=== PATIENT | male | born 1965 | race Caucasian/White ===

== ENCOUNTER 2017-10-24 00:44 | Emergency (ER) | payer OTHER ==
[~2017-10-24] VITALS: Ht 167.6 cm; Wt 113.4 kg
[~2017-10-24 00:44] MED LIST: FIORINAL 50-321 EACH PO; IMITREX50 M1 PO
--- NOTE | 2017-10-24 01:48 | ED GI/GU/ABDOMINAL COMPLAINT ---
History of Present Illness General Chief Complaint: Abdominal Pain/Flank Pain Stated Complaint: "UM I HAVE PAIN IN MY RIGHT KIDNEY" Source: patient, old records Exam Limitations: no limitations Vital Signs & Intake/Output Vital Signs & Intake/Output Vital Signs Date Time Temp Pulse Resp B/P B/P Pulse O2 O2 Flow FiO2 Mean Ox Delivery Rate 10/24 0110 188/108 10/24 0106 98.7 71 18 221/111 98 Room Air Allergies Coded Allergies: No Known Allergies (01/23/17) Reconcile Medications Fiorinal (Fiorinal 50-325-40 MG Capsule) 50 MG-325 MG-40 MG CAPSULE 1 TAB PO TID PRN MIGRAINE TEN...[id number] Sumatriptan Succinate (Imitrex) 50 MG TABLET 1 TAB PO TID PRN MIGRAINE Triage Note: TRIAGE: PATIENT TO ER FROM HOME REPORTING "KIDNEY STONE, HX OF SAME." R FLANK PAIN SINCE 10:30PM TONIGHT, INTERMITTENT SEVERITY, APPROX 9-10/10 AT WORST. +NAUSEA, DENIES VOMITTING/ DIARRHEA. DENIES URINARY DIFFICULTIES. Triage Nurses Notes Reviewed? yes HPI: Patient presents with right flank pain radiating to the right groin since 10:00 this evening. The pain is colicky in nature. The pain is constant. There are no aggravating or mitigating factors. He rates the pain at 8 out of 10. Similar symptoms in the past when he has had kidney stones. Positive nausea but no vomiting. No fevers or chills. No dysuria. Past History Travel History Traveled to [place] past 21 day No Medical History Any Pertinent Medical History? 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 No Review of Systems Review of Systems Constitutional: Reports: no symptoms. EENTM: Reports: no symptoms. Respiratory: Reports: no symptoms. Cardiovascular: Reports: no symptoms. GI: Reports: see HPI, abdominal pain, nausea. Genitourinary: Reports: no symptoms. Musculoskeletal: Reports: see HPI, back pain. Skin: Reports: no symptoms. Neurological/Psychological: Reports: no symptoms. Hematologic/Endocrine: Reports: no symptoms. Immunologic/Allergic: Reports: no symptoms. All Other Systems: Reviewed and Negative Physical Exam Physical Exam General Appearance: well developed/nourished, alert, awake, anxious, mild distress Head: atraumatic, normal appearance Eyes: Bilateral: PERRL, EOMI. Ears, Nose, Throat, Mouth: hearing grossly normal, moist mucous membrane Neck: normal inspection, supple, full range of motion Respiratory: normal breath sounds, chest non-tender, no respiratory distress, lungs clear Cardiovascular: regular rate/rhythm, normal peripheral pulses Gastrointestinal: normal bowel sounds, soft, non-tender, no organomegaly Back: CVA tenderness (R) Extremities: normal range of motion Neurologic/Psych: no motor/sensory deficits, awake, alert, oriented x 3, normal mood/affect Skin: intact, normal color, warm/dry Core Measures ACS in differential dx? No Sepsis Present: No Sepsis Focused Exam Completed? No Progress Differential Diagnosis: ureterolithiasis, UTI/pyelo Plan of Care: Orders Procedure Date/time Status URINALYSIS 10/24 49 Complete Laboratory Tests 10/24/17 0053: Urinalysis LIGHT H, Urine Color YEL, Urine Clarity CLEAR, Urine pH 6.0, Ur Specific Perry 1.025, Urine Protein TRACE H, Urine Ketones NEG, Urine Nitrite NEG, Urine Bilirubin NEG, Urine Urobilinogen 1.0, Ur Leukocyte Esterase NEG, Ur Microscopic SEDIMENT EXAMINED, Urine RBC 10-15 H, Urine WBC 1-3 H, Hyaline Casts 1-3 H, Urine Hemoglobin LARGE H, Urine Glucose NEG Diagnostic Imaging: Viewed by Me: CT Scan. Discussed w/RAD: CT Scan. Radiology Impression: PATIENT: ANCELMO HAUSER PRESENT AGE: 52 PATIENT ACCOUNT NO: [id number] : 66 LOCATION: [facility] ORDERING PHYSICIAN: Yong Morgan MD SERVICE DATE: 10/24/17 EXAM TYPE: CAT - CT ABD & PELVIS W/O IV CONTRAS EXAMINATION: CT ABDOMEN AND PELVIS WITHOUT CONTRAST CLINICAL INFORMATION: Right lower quadrant and right flank pain. COMPARISON: None TECHNIQUE: Multidetector volumetric imaging was performed from the superior aspect of the liver through the pubic symphysis. Sagittal and coronal reformatted images were obtained on the technologist's workstation. DLP: 964 mGy-cm FINDINGS: LUNG BASES: There is a 0.5 cm groundglass nodule at the left base on series 2 image 12. The lung bases are otherwise clear. The visualized cardiac structures are unremarkable. LIVER, GALLBLADDER, AND BILIARY TREE: The liver is normal in size, shape, and attenuation. No focal hepatic lesion or biliary ductal dilatation is present. The gallbladder is unremarkable with no evidence of radiopaque gallstones, gallbladder wall thickening, or obvious pericholecystic inflammatory changes. PANCREAS: Unremarkable. SPLEEN: Unremarkable. ADRENAL GLANDS: Unremarkable. KIDNEYS AND URETERS: The kidneys are normal in size, shape, and attenuation. There is right perinephric stranding. Mild right hydroureteronephrosis. There is a proximal ureteral 0.4 cm obstructing calculus. This is seen at the level of L3-L4. The remainder of the ureter is decompressed. No additional renal calculi. BLADDER: Unremarkable. GASTROINTESTINAL TRACT: Tiny hiatal hernia. The stomach is otherwise unremarkable. The small bowel is normal in caliber. No obstruction. Normal appendix. No colonic wall thickening or inflammatory change. Minimal colonic diverticulosis without diverticulitis. No free air or free fluid. ABDOMINAL WALL : No significant hernia is appreciated. LYMPH NODES: Normal. VASCULAR: Normal caliber aorta with mild atherosclerotic calcification. PELVIC VISCERA: The prostate and seminal vesicles are unremarkable. OSSEOUS STRUCTURES: No acute or suspicious osseous abnormality. Mild degenerative changes of the spine. Mild degenerative change of the hips. IMPRESSION: 1. Mild right hydroureteronephrosis with a 0.4 cm proximal ureteral obstructing calculus. 2. 0.5 cm groundglass nodule at the left lung base. According to the UPDATED 2017 Fleischner Society recommendations, the advised follow-up imaging for a single subsolid nodule <6 mm is: No routine follow-up is needed. DICTATED BY: Ricky Chavira MD DATE/ TIME DICTATED:10/24/17231 MERCHANDISE COLLECTOR:PEGGY DATE/TIME TRANSCRIBED: 10/24/17231 CONFIDENTIAL, DO NOT COPY WITHOUT APPROPRIATE AUTHORIZATION. < Electronically signed in Other Vendor System> SIGNED BY: Ricky Chavira MD 10/24/17238 Initial ED EKG: none Departure Departure Disposition: HOME OR SELF CARE Condition: Stable Clinical Impression Primary Impression: Kidney stone Referrals: Alma Delia Quintanilla MD Patient Has No Primary Care Dr (PCP/Family) Additional Instructions: Drink plenty of fluids. Take Percocet as needed for the pain. The Percocet is very constipating some extremity. Her earlier on the Percocet. The Percocet is also very sedating so do not drive after taking it. Take Zofran as needed for the nausea. Take Flomax daily for 2 weeks as this will help the stone pass. Follow-up with Dr. Quintanilla. Return if symptoms worsen or for any concerns. Departure Forms: Customer Survey General Discharge Information Prescriptions: Current Visit Scripts Oxycodone HCl/Acetaminophen (Percocet 5-325 MG Tablet) 1-2 TAB PO Q6P PRN PAIN #20 TAB Ondansetron (Zofran Odt) 1 TAB SL TID PRN NAUSEA #10 TAB Tamsulosin HCl (Flomax) 1 CAP PO DAILY #14 CAP
--- NOTE | 2017-10-24 02:39 | CT SCAN REPORT ---
EXAMINATION: CT ABDOMEN AND PELVIS WITHOUT CONTRAST CLINICAL INFORMATION: Right lower quadrant and right flank pain. COMPARISON: None TECHNIQUE: Multidetector volumetric imaging was performed from the superior aspect of the liver through the pubic symphysis. Sagittal and coronal reformatted images were obtained on the technologist's workstation. DLP: 964 mGy-cm FINDINGS: LUNG BASES: There is a 0.5 cm groundglass nodule at the left base on series 2 image 12. The lung bases are otherwise clear. The visualized cardiac structures are unremarkable. LIVER, GALLBLADDER, AND BILIARY TREE: The liver is normal in size, shape, and attenuation. No focal hepatic lesion or biliary ductal dilatation is present. The gallbladder is unremarkable with no evidence of radiopaque gallstones, gallbladder wall thickening, or obvious pericholecystic inflammatory changes. PANCREAS: Unremarkable. SPLEEN: Unremarkable. ADRENAL GLANDS: Unremarkable. KIDNEYS AND URETERS: The kidneys are normal in size, shape, and attenuation. There is right perinephric stranding. Mild right hydroureteronephrosis. There is a proximal ureteral 0.4 cm obstructing calculus. This is seen at the level of L3-L4. The remainder of the ureter is decompressed. No additional renal calculi. BLADDER: Unremarkable. GASTROINTESTINAL TRACT: Tiny hiatal hernia. The stomach is otherwise unremarkable. The small bowel is normal in caliber. No obstruction. Normal appendix. No colonic wall thickening or inflammatory change. Minimal colonic diverticulosis without diverticulitis. No free air or free fluid. ABDOMINAL WALL: No significant hernia is appreciated. LYMPH NODES: Normal. VASCULAR: Normal caliber aorta with mild atherosclerotic calcification. PELVIC VISCERA: The prostate and seminal vesicles are unremarkable. OSSEOUS STRUCTURES: No acute or suspicious osseous abnormality. Mild degenerative changes of the spine. Mild degenerative change of the hips. IMPRESSION: 1. Mild right hydroureteronephrosis with a 0.4 cm proximal ureteral obstructing calculus. 2. 0.5 cm groundglass nodule at the left lung base. According to the UPDATED 2017 Fleischner Society recommendations, the advised follow-up imaging for a single subsolid nodule <6 mm is: No routine follow-up is needed.
[2017-10-24] MEDS ORDERED: FLOMAX0.4 M1 PO (02:45)
[2017-10-24] MEDS ORDERED: PERCOCET 5-3251 EACH PO (02:45)
[2017-10-24] MEDS ORDERED: ZOFRAN ODT4 M1 SL (02:45)
[2017-10-24 02:52] VITALS: BP 174/89
== END 2017-10-24 02:52 ==
LOC: ERH 00:44
DX: N20.0 Calculus of kidney (principal)
CPT/HCPCS: 74176; 81001; 96361; 96374; 96375; J1885; J2405

== ENCOUNTER → 2017-12-17 | Day surgery (SDC) | payer OTHER ==
[~2017-12-17] VITALS: Ht 167.6 cm; Wt 113.4 kg
[~2017-12-17] MED LIST changes: +AMLODIPINE BESY10 M1 PO; +FLOMAX0.4 M1 PO; +PAXIL10 M1 PO; +PERCOCET 5-3251 EACH PO; +QUINAPRIL HCL10 M1 PO; +ZOFRAN ODT4 M1 SL
--- NOTE | 2017-12-17 09:14 | ED GI/GU/ABDOMINAL COMPLAINT ---
History of Present Illness General Chief Complaint: General Adult Stated Complaint: TO MEET DR NICHOLS Source: patient, family, old records, PCP Exam Limitations: no limitations Vital Signs & Intake/Output Vital Signs & Intake/Output Vital Signs Date Time Temp Pulse Resp B/P B/P Pulse O2 O2 Flow FiO2 Mean Ox Delivery Rate 12/17 902 98.6 72 16 195/93 98 Room Air Allergies Coded Allergies: No Known Allergies (01/23/17) Reconcile Medications Amlodipine Besylate 10 MG TABLET 1 TAB PO DAILY HTN (Reported) Oxycodone HCl/Acetaminophen (Percocet 5-325 MG Tablet) 5 MG-325 MG TABLET 1 TAB PO BID pain Paroxetine HCl (Paxil) 10 MG TABLET 1 TAB PO DAILY ANXIETY (Reported) Quinapril HCl 10 MG TABLET 1 TAB PO DAILY HTN (Reported) Triage Note: PT SENT IN BY DR RUIZ TO GO TO OR DUE TO R SIDE KIDNEY STONE Triage Nurses Notes Reviewed? yes HPI: Patient seen in the emergency department last night and diagnosed with a kidney stone. Patient continues to have pain. Patient discussed it with Dr. Ruiz, wants to put a stent in. The patient is going through the emergency department on the way to the operating room. Patient is nauseous however he has not vomited. He describes the pain as a throbbing pain which is 6 out of 10. The pain radiates towards his groin. The pain is constant. There are no aggravating or mitigating factors. Past History Travel History Traveled to [place] past 21 day No Medical History Any Pertinent Medical History? 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 No Review of Systems Review of Systems Constitutional: Reports: no symptoms. EENTM: Reports: no symptoms. Respiratory: Reports: no symptoms. Cardiovascular: Reports: no symptoms. GI: Reports: see HPI, abdominal pain, nausea. Genitourinary: Reports: no symptoms. Musculoskeletal: Reports: see HPI, back pain. Skin: Reports: no symptoms. Neurological/Psychological: Reports: no symptoms. Hematologic/Endocrine: Reports: no symptoms. Immunologic/Allergic: Reports: no symptoms. All Other Systems: Reviewed and Negative Physical Exam Physical Exam General Appearance: well developed/nourished, alert, awake, anxious, mild distress Head: atraumatic, normal appearance Eyes: Bilateral: PERRL, EOMI. Ears, Nose, Throat, Mouth: hearing grossly normal, moist mucous membrane Neck: normal inspection, supple, full range of motion Respiratory: normal breath sounds, chest non-tender, no respiratory distress, lungs clear Cardiovascular: regular rate/rhythm, normal peripheral pulses Gastrointestinal: normal bowel sounds, soft, non-tender Back: normal inspection, normal range of motion Extremities: normal range of motion Neurologic/Psych: no motor/sensory deficits, awake, alert, oriented x 3, normal gait, normal mood/affect Core Measures ACS in differential dx? No Sepsis Present: No Sepsis Focused Exam Completed? No Progress Differential Diagnosis: ureterolithiasis Plan of Care: To the operating room Initial ED EKG: none Departure Departure Disposition: STILL A PATIENT Condition: Stable Clinical Impression Primary Impression: Kidney stone Referrals: Patient Has No Primary Care Dr (PCP/Family) Departure Forms: Customer Survey General Discharge Information OR/GI Note Spoke With: Erick Ruiz MD ED Treatment Decision: VESTACHARITOANCELMO requires urgent operative management or an emergent procedure that cannot be performed in the Emergency Room setting. Transport To: Surgical [facility]
--- NOTE | 2017-12-17 09:34 | Cons- Urology ---
General Information and HPI Consulting Request Date of Consult: 12/17/17 Requested By: MD Eddie, [place]- Reason for Consult: bilateral hydronephrosis: ARF; Bilateral ureteral stones Source of Information: patient, family, old records Exam Limitations: no limitations History of Present Illness: 52 yr old seen 3 times in ER recently with bilat. renal colic and known bilat. ureter stones: now with persistent colic on right with ARF. CT reviewed with pt. and need for bilat. stents discussed for NOW. Allergies/Medications Allergies: Coded Allergies: No Known Allergies (01/23/17) Home Med List: Amlodipine Besylate 10 MG TABLET 1 TAB PO DAILY HTN (Reported) Oxycodone HCl/Acetaminophen (Percocet 5-325 MG Tablet) 5 MG-325 MG TABLET 1 TAB PO BID pain Paroxetine HCl (Paxil) 10 MG TABLET 1 TAB PO DAILY ANXIETY (Reported) Quinapril HCl 10 MG TABLET 1 TAB PO DAILY HTN (Reported) Past History Medical History Neurological: migraine EENT: NONE Cardiovascular: hypertension Respiratory: NONE Gastrointestinal: NONE Hepatic: NONE Renal: nephrolithiasis, KIDNEY STONES Musculoskeletal: NONE Psychiatric: NONE Endocrine: NONE Blood Disorders: NONE Cancer(s): NONE 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 Home Who Do You Live With? spouse, child Services at Home: None Primary Language: Botswanan ETOH Use: denies use Illicit Drug Use: denies illicit drug use Functional Ability ADLs Independent: dressing, eating, toileting, bathing. Ambulation: independent IADLs Independent: shopping, housework, finances, food prep, telephone, transportation , medication admin. Employment History Employment: Employed Retired? no Review of Systems Review of Systems Constitutional: Reports: see HPI, malaise. EENTM: Denies: no symptoms. Cardiovascular: Denies: no symptoms. Respiratory: Denies: no symptoms. GI: Reports: abdominal pain, bloating. Genitourinary: Reports: dysuria. Skin: Denies: no symptoms. Neurological/Psychological: Denies: no symptoms. Exam & Diagnostic Data Vital Signs and I&O Vital Signs Date Time Temp Pulse Resp B/P B/P Pulse O2 O2 Flow FiO2 Mean Ox Delivery Rate 12/17 0903 98.6 72 16 195/93 98 Room Air Intake & Output 12/17 1600 12/17 0812/17 0000 12/16 1600 12/16 0800 12/16 0000 Intake Total Output Total Balance Patient 250 lb Weight Physical Exam General Appearance: well developed/nourished, mild distress Head: atraumatic Eyes: Bilateral: normal appearance. Neck: normal inspection Respiratory: normal breath sounds Cardiovascular: regular rate/rhythm Gastrointestinal: normal bowel sounds, soft Back: CVA tenderness (R), CVA tenderness (L) Extremities: normal inspection Neurologic/Psych: no motor/sensory deficits, awake, alert, oriented x 3 Skin: intact, normal color, warm/dry Reproductive: Normal male genitalia Imaging Results: PATIENT: ANCELMO HAUSER PRESENT AGE: 52 PATIENT ACCOUNT NO: [id number] : 67 LOCATION: [facility] ORDERING PHYSICIAN: Vincent Guardado MD SERVICE DATE: 12/16/17 EXAM TYPE: CAT - CT ABD & PELVIS W/O IV CONTRAS EXAMINATION: CT ABDOMEN AND PELVIS WITHOUT CONTRAST CLINICAL INFORMATION: Right flank pain. History of kinetic stones. COMPARISON: CT 10/24/2017 TECHNIQUE: Multidetector volumetric imaging was performed from the superior aspect of the liver through the pubic symphysis. Sagittal and coronal reformatted images were obtained on the technologist's workstation. DLP: 1252 mGy-cm FINDINGS: LUNG BASES: The visualized lung bases are unremarkable. LIVER, GALLBLADDER, AND BILIARY TREE: The liver is normal in size, shape, and attenuation. No focal hepatic lesion or biliary ductal dilatation is present. The gallbladder is unremarkable with no evidence of radiopaque gallstones, gallbladder wall thickening, or obvious pericholecystic inflammatory changes. PANCREAS: Unremarkable. SPLEEN: Unremarkable. ADRENAL GLANDS: Unremarkable. KIDNEYS AND URETERS: Left kidney is unremarkable. While there is no left renal hydronephrosis there is a persistent stone within the distal left ureter approximately 2 to 3 cm proximal to the UVJ. The stone measures 0.7 cm (image 73, series 2). There is persistent right sided moderate hydroureteronephrosis secondary to a stone within the proximal ureter. There is no significant interval change in the progression of the stone compared to the CT of 10/24/2017. The stone measures 0.4 cm. The Hounsfield units are 366. The distance to the mid axillary line is approximately 18.3 cm. Compared the prior study there is significant progression in the amount of perinephric stranding and edema within gross fascia. Edema tracks along the distal course of the ureter. BLADDER: Unremarkable. GASTROINTESTINAL TRACT: Scattered diverticula without CT evidence for acute diverticulitis. Small hiatal hernia. No bowel obstruction. ABDOMINAL WALL: No significant hernia is appreciated. LYMPH NODES: Scattered mesenteric and retroperitoneal lymph nodes. VASCULAR: Unremarkable. PELVIC VISCERA: Prostate and seminal vesicles appear unremarkable. OSSEOUS STRUCTURES: Stable pars defects at L5-S1 level with no significant associated spondylolisthesis. IMPRESSION: Persistent moderately severe right-sided hydroureteronephrosis secondary to a stone within the proximal right ureter. This appears to be the same stone compared to the CT of 10/24/2017 with no evidence of distal progression. There is increased inflammation within the right retroperitoneum in addition to increased right perinephric stranding. Distal left ureteral stone, stable compared to prior without associated hydroureteronephrosis. DICTATED BY: Delisa Nolasco MD DATE/TIME DICTATED:12/16/172245 SINGING TEACHER:PEGGY DATE/TIME TRANSCRIBED:12/16/172245 CONFIDENTIAL, DO NOT COPY WITHOUT APPROPRIATE AUTHORIZATION. <Electronically signed in Other Vendor System> SIGNED BY: Delisa Nolasco MD 12/16/17 1688 Assessment/Plan Assessment/Plan bialateral ureter stones with hydro. and ARF./BIlateral stents Copies To: Erick Ruiz MD Consult Acknowledgment - Thank you for your consult request. Attending MD Review Statement Attending Statement Attending Statement: examined this patient Attending Assessment/Plan: bilat. stones: need bilat. stents.
[2017-12-17 09:59] VITALS: BP 184/64
--- NOTE | 2017-12-17 14:12 | Operative Report ---
Operative/Inv Procedure Report Surgery Date: 12/17/17 Name of Procedure: cystoscopy:bilateral stent insertion: fluoroscopy Pre-Operative Diagnosis: bilateral obstructing ureter stones with ARF, and bilat. colic Post-Operative Diagnosis: same Estimated Blood Loss: scant Surgeon/Cut Off Saw Set Up Operator: MD Joseph, [place] Anesthesia: laryngeal mask airway Implants: bilat: cook 6 x 22 stents Specimens: none Complications: none Condition: pain free-improved Operative/Procedure Note Note: The patient was taken to the operating room, and transferred to the OR table in supine position. Timeout was performed, with the patient awake, in order to confirm identity, procedure, antibiotics, anesthesia, and other pertinent information. After adequate anesthesia and antibiotics, the patient was placed in lithotomy stirrups draped and prepped in the usual surgical fashion. A 22 Jamaican cystoscope sheath with 30 angle lens was inserted into the urethra without difficulty. Upon entering the prostatic urethra, the prostate was noted to have mild BPH. Upon entering the bladder, the bladder was noted to be free of tumor, free of stone, with bilateral clear efflux from bilateral ureteral orifices. Under direct visualization the left orifice was intubated with a 5 Jamaican whistle-tip catheter. Retrograde pyelogram revealed a large distal ureter stone with proximal hydronephrosis. Contrast material drained slowly from the left side. The ureteral catheter was then removed, and inserted into the right ureteral orifice. Retrograde pyelogram of the right ureter reveals a large stone in the mid ureter, with proximal hydronephrosis. The catheter was then removed, and contrast material was slow to drain from the right side. The right orifice was then inserted with a 0.035 guidewire, and advanced into the right renal pelvis without difficulty, bypassing the stone. A 6 x 20 Cook ureteral stent was rail-roaded over the guidewire. Following the guidewire, the stent advanced into the right renal pelvis without difficulty. With the proximal coil visualized fluoroscopically in the right renal pelvis, and the distal coil seen in the bladder cystoscopically, the guidewire was removed. The stent remained in proper place, draining clear yellow fluid. The or leftifice was then inserted with a 0.035 guidewire, and advanced into the left renal pelvis without difficulty, bypassing the left ureter stone. A second 6 x 20 Cook ureteral stent was rail-roaded over the guidewire. Following the guidewire, the stent advanced into the right renal pelvis without difficulty. With the proximal coil visualized fluoroscopically in the left renal pelvis, and the distal coil seen in the bladder cystoscopically, the guidewire was removed. The stent remained in proper place, draining clear yellow fluid. The bladder was drained, and the cystoscope was removed without difficulty. All sponge needle and instrument count were correct at the end of the case. The patient tolerated the procedure well, and was taken to the recovery room in satisfactory condition. Discharge Disposition: PACU CC: Erick Ruiz MD
--- NOTE | 2017-12-17 14:51 | RADIOLOGY REPORT ---
EXAMINATION: INTRAOPERATIVE FLUOROSCOPIC GUIDANCE AND BILATERAL URETEROSCOPY CLINICAL INFORMATION: Bilateral ureteroscopy. COMPARISON: Selected images CT abdomen and pelvis 12/16/2017. TECHNIQUE: Fluoroscopic time was utilized in the OR for Dr. Ruiz. Fluoroscopic images were obtained in AP projections of the abdomen. FINDINGS: Initial images show a catheter and guidewire extending to the region of the right kidney followed by placement of a double-J ureteral stent which is partially visualized. Subsequent images show placement of a guidewire into the region of the left kidney followed by placement of a left double-J ureteral stent which is partially visualized. Please correlate with the procedural documentation. FLUOROSCOPY TIME: 6 seconds of fluoroscopic time was utilized for the entirety of this examination. NUMBER OF IMAGES: 8 IMPRESSION: Intraoperative guidance as described above.
== END ==
LOC: ERH 09:01 → ER-OR 09:07 → STS 10:53 → ER-OR 18:36
DX: N13.2 Hydronephrosis with renal and ureteral calculous obstruction (principal); Z87.442 Personal history of urinary calculi; N17.9 Acute kidney failure, unspecified; I10 Essential (primary) hypertension
CPT/HCPCS: 76000; 96374; 96375; J0131; J0696; J1885; J2250; J2405

== ENCOUNTER → 2017-12-19 | Day surgery (SDC) | payer OTHER ==
[~2017-12-19] VITALS: Ht 167.6 cm; Wt 113.4 kg
--- NOTE | 2017-12-19 16:17 | Operative Report ---
Operative/Inv Procedure Report Surgery Date: 12/19/17 Name of Procedure: cystoscopy: left ureteroscopy with laser litho. of 10mm left mid ureter stone, retrograde, fluoroscopy. left stent exchange Pre-Operative Diagnosis: left ureter stone with stent Post-Operative Diagnosis: same: impacted stone in ureter resulted in masticated ureter requiring continuous presense of stent to facilitate healing and prevent hydro. Estimated Blood Loss: scant Surgeon/Insurance Loss Assessor: Erick Ruiz MD Anesthesia: laryngeal mask airway Drains: none Specimens: left ureter stone, left old ureter stent Complications: none Operative/Procedure Note Note: The patient was taken to the operating room and placed on the OR table in supine position. Timeout was performed, with the patient awake, in order to confirm correct identity, procedure, laterality, and other pertinent pam-operative information. After adequate anesthesia and antibiotics, the patient was then placed in lithotomy stirrups, draped and prepped in the usual surgical fashion. The Holmium Yag Laser was confirmed in the room and on standby. A 22 K[place] cystoscope sheath with 30 angle lens was inserted into the bladder without difficulty. Upon entering the bladder, the bladder was noted to be free of tumor , and free of stone. Both orifices were in their orthotopic position, and both with stents in place. The left stent was grasped with an alligator cystoscope grasper. The cystoscope along with entire left stent was removed without difficulty. The cystoscope was then reinserted into the bladder without difficulty. The left ureter orifice was intubated with an 8fr cone-tip catheter and a retrograde pyelogram with fluoroscopy was performed revealing mild hydronephrosis, but no filling defects. The cone-tipped catheter was removed revealing a large left ureter filling defect c/w stone at the distal ureter. Following the retrograde pyelogram, the left ureter orifice was inserted with a 0.035 Sensor-wire, which was advanced into the left renal pelvis without difficulty. Leaving the Glidewire in place, the cystoscope was removed. The Flexible ureteroscope was railroaded over the gluidewire, following it with fluoroscopic visualization, into the bladder, up the left ureter, and into the left renal pelvis, with fluoroscopy visualization. Pyeloscopy/calyxoscopy of the upper, middle, and lower poles reveal no evidence of tumor, no evidence of stones. Additionally, NO other stones, nor any tumor was visualized in the renal pelvis. The entire length of the ureter was also visualized, and the ureter stone was visible at the distal ureter. The 273 mcm laser fiber was inserted into the ureteroscope. With the laser fiber in direct contact witht the stoen, the laser was activated. The stone was notend to break into multiple tiny fragments. The bard zero-tip basket was deployed in the ureterocope, and the fragments were all extruded. The ureter was again evaluated with the ureteroscope pulled carefully on the way out, and the area where the stone was impacted looked ratty: I then decided it was best to place, a stent once again. The 22 Kisw[place]ili cystoscope sheath, with a 30 angle lens, was then reinserted into the bladder. The left orifice was intubated with a 0.035 sensor wire, which was advanced into the left renal pelvis without difficulty. A Bard 6 x 22 onlay stent was visible within over the wire. The stent easily advanced over the wire and when the proximal coil reaching the left renal pelvis, and the distal coil was seen cystoscopically in the bladder, the wire was removed. The stent remained in proper place. The bladder was then drained via the cystoscope sheath. All sponge needle and instrument count were correct at the end of the case. The patient tolerated the procedure well, and was then taken to the recovery room in satisfactory condition. He is to follow up in 4 weeks for right ureter ESWL, with left stent removal. Discharge Disposition: PACU CC: Erick Ruiz MD
--- NOTE | 2017-12-20 08:02 | RADIOLOGY REPORT ---
EXAMINATION: Intraoperative fluoroscopy CLINICAL INFORMATION: Ureteroscopy, left COMPARISON: Bilateral ureteroscopy 12/17/2017 TECHNIQUE: Intraoperative fluoroscopy was provided for use by Dr. Ruiz. A total of 23 images were saved to PACS. A radiologist was not present during imaging. TOTAL FLUOROSCOPIC TIME: 86 seconds FINDINGS\E\IMPRESSION: Intraoperative fluoroscopy provided for use by Dr. Ruiz. Please see operative note for detailed findings.
== END ==
LOC: STS 07:00
DX: N20.1 Calculus of ureter (principal); Z87.442 Personal history of urinary calculi; N28.89 Other specified disorders of kidney and ureter; I10 Essential (primary) hypertension
CPT/HCPCS: 76000; 93005; 93010; C2617

== ENCOUNTER → 2018-01-09 | Day surgery (SDC) | payer OTHER ==
[~2018-01-09] VITALS: Ht 167.6 cm; Wt 113.4 kg
--- NOTE | 2018-01-09 10:33 | Operative Report ---
Operative/Inv Procedure Report Surgery Date: 01/09/18 Name of Procedure: right renal ESWL, cystoscopy with LEFT stent removal, fluoroscopy Pre-Operative Diagnosis: bilateral stents, right renal stone Post-Operative Diagnosis: same Estimated Blood Loss: scant Surgeon/Cvicu Nurse: Erick Ruiz MD Anesthesia: moderate sedation Specimens: left stent Complications: none Operative/Procedure Note Note: The patient was taken to the operating room placed on the OR table in supine position. Timeout was performed, with the patient awake, in order to confirm correct procedure, laterality, anesthesia, and other pertinent perioperative information. After adequate anesthesia and antibiotics, the patient was then positioned over the ESWL table cutout overlying the treatment dome. Fluoroscopy, using AP and oblique views, as well as renal ultrasound, or performed in order to locate the stone. The position of the RIGHT renal stone was optimized, and positioned in the middle of the ESWL crosshairs. The stone was measured to be approximately 10 mm in size. ESWL was initiated at low power, and after 200 shockwaves delivered, noting the patient's tolerance to the shockwaves, the power was increased to maximum. At the end of 2500 shockwaves, fluoroscopy confirms the change in consistency of the stone, indicating shattering of the stone. Given the size of the stone, I felt is was prudent to keep the right stent in place for now. The patient was then frog legged, draped and prepped in the usual surgical fashion. 22 Yi cystoscope sheath with a 30 angle lens was inserted into the bladder without difficulty. The left stent was visualized, and grasped with alligator forceps. The cystoscope along with entire left stent was removed without difficulty with fluoroscopic visualization. All sponge needle and instrument count were correct at the end of the case. The patient tolerated the procedures well, and was taken to the recovery room in satisfactory condition. The patient is discharged home with pain medication, and follow-up instructions with in 2-3 weeks' time. Findings: 10mm right UPJ stone Discharge Disposition: Same Day Admissions CC: Erick Ruiz MD
== END ==
LOC: STS 03:39
DX: N20.0 Calculus of kidney (principal); I10 Essential (primary) hypertension
CPT/HCPCS: J2250